=== PATIENT | female | born 1945 | race Caucasian/White ===

== ENCOUNTER 2018-06-11 08:43 | Emergency (ER) | payer MEDICARE ==
[2018-06-11 08:47] VITALS: BP 155/86
[2018-06-11] MEDS ORDERED: Oxymetazoline 0.05% NASAL SPR* 15 ML BTL RIGHT NARE ONE (08:56)
--- NOTE | 2018-06-11 09:06 | ED ---
Throat Pain/Nasal Congestion - HPI Summary HPI Summary: 72 year old female presents with epistaxis from right nare. States she awoke this morning with nose bleed. No known injury. Reports previous episode of anterior epistaxis 1-2 years ago that required cauterization. Denies anticoagulant or antiplatelet therapy, personal or family blood disorder. - History of Current Complaint Chief Complaint: EDEpistaxis Time Seen by Provider: 06/11/18 08:47 Hx Obtained From: Patient Onset/Duration: Sudden Onset, Lasting Hours - Allergies/Home Medications Allergies/Adverse Reactions: Allergies Allergy/AdvReac Type Severity Reaction Status Date / Time No Known Allergies Allergy Verified 10/16/15 20:25 PMH/Surg Hx/FS Hx/Imm Hx Endocrine/Hematology History: Reports: Hx Diabetes Cardiovascular History: Reports: Hx Hypercholesterolemia Respiratory History: Reports: Hx Chronic Bronchitis Infectious Disease History: No Infectious Disease History: Denies: Traveled Outside the [place] in Last 30 Days - Family History Known Family History: Positive: Non-Contributory - Social History Occupation: Retired Lives: With Family Alcohol Use: Rare Hx Substance Use: No Substance Use Type: Reports: None Smoking Status (MU): Heavy Every Day Tobacco Smoker Review of Systems Negative: Fever, Chills Negative: Drainage, Erythema Positive: Epistaxis. Negative: Sore Throat, Ear Ache, Nasal Discharge Negative: Palpitations, Chest Pain Negative: Shortness Of Breath, Cough Negative: Abdominal Pain, Vomiting, Diarrhea, Nausea All Other Systems Reviewed And Are Negative: Yes Physical Exam - Summary Physical Exam Summary: GENERAL APPEARANCE: Well developed, well nourished, alert and cooperative, and appears to be in no acute distress. HEAD: Atraumatic. normocephalic. EYES: Conjunctiva clear. No discharge. EARS: External auditory canals and tympanic membranes clear, hearing grossly intact. NOSE: Left nare clear without bleeding or drainage. Right nare no active bleeding. Blood clot noted to floor anterior nasal cavity. No erosions noted. THROAT: Oral cavity and pharynx normal. Small amount of blood noted in the posterior pharynx. No inflammation, swelling, exudate, or lesions. Teeth and gingiva in good general condition. NECK: Neck supple, non-tender without lymphadenopathy. CARDIAC: Normal S1 and S2. No S3, S4 or murmurs. Rhythm is regular. There is no peripheral edema, cyanosis or pallor. Extremities are warm and well perfused. Capillary refill is less than 2 seconds. LUNGS: Clear to auscultation and percussion without rales, rhonchi, wheezing or diminished breath sounds. ABDOMEN: Positive bowel sounds. Soft, nondistended, nontender. No guarding or rebound. No masses or hepatosplenomegally. MUSKULOSKELETAL: ROM intact to all extremities. No joint erythema or tenderness. Normal muscular development. Normal gait. EXTREMITIES: No significant deformity or joint abnormality. No edema. SKIN: Skin normal color, texture and turgor with no lesions or eruptions. Triage Information Reviewed: Yes Vital Signs On Initial Exam: Initial Vitals Temp Pulse Resp BP Pulse Ox 96.8 F 83 20 155/86 95 06/11/18 08:45 06/11/18 08:45 06/11/18 08:45 06/11/18 08:45 06/11/18 08:45 Vital Signs Reviewed: Yes Diagnostics - Vital Signs Vital Signs Temp Pulse Resp BP Pulse Ox 06/11/18 08:45 96.8 F 83 20 155/86 95 - Laboratory Lab Statement: Any lab studies that have been ordered have been reviewed, and results considered in the medical decision making process. Re-Evaluation - Re-Evaluation First Eval Re-Evaluation Time: 09:57 Change: Improved Comment: Patient received Afrin nasal spray and direct pressure via nasal clamp for approximately 15-20 minutes. Nasal clamp removed. No active bleeding. No pharyngeal blood noted at this time. EENT Course/Dx - Course Course Of Treatment: 72 year old female presents with epistaxis from right nare. States she awoke this morning with nose bleed. No known injury. Reports previous episode of anterior epistaxis 1-2 years ago that required cauterization. Denies anticoagulant or antiplatelet therapy, personal or family blood disorder. At initial exam there was no active bleeding observed. There was some blood noted in the posterior pharynx. Patient received Afrin nasal spray and additional direct pressure for 15-20 minutes. Re-examination showed no active bleeding. No more blood noted int the posterior pharynx. Reviewed home prevention measures, first aid, recommend smoking cessation, and warning symptoms requiring return to ED reviewed with patient. Verbalizes understanding and agrees with POC. - Differential Diagnoses Differential Diagnoses: Coagulopathy, Epistaxis, Sinusitis, Trauma, URI/ Bronchitis - Diagnoses Provider Diagnoses: Epistaxis not due to trauma Discharge - Sign-Out/Discharge Documenting (check all that apply): Patient Departure - Discharge Plan Condition: Improved Disposition: HOME Patient Education Materials: Nosebleed (ED) Referrals: Pascual RAM,Bk Hathaway [Primary Care Provider] - Additional Instructions: Your received Afrin nasal spray and direct pressure to adequately control your nose bleed in the emergency room. Do NOT blow your nose for at least the next 24 hours to avoid dislodging the blood blot. If you have to sneeze, try to do so with your mouth open so that the force of the air exits your mouth instead of your nose which may cause the blood clot to dislodge. Avoid taking any non-steroidal anti-inflammatory medications such as ibuprofen ( Advil, Motrin), naproxen (Aleve), or aspirin for the next several days. You may use acetaminophen (Tylenol) according to directions as needed for pain. To help prevent nose bleeds in the future: Avoid picking your nose. Keep the nasal passages moist using a saline nasal spray. Run a cool mist humidifier in your room at night. Avoid irritants such as smoking and chemical sprays such as air fresheners or chemical technician. First Aid for nose bleeds: Sit up and lean forwar to help prevent the blood from running down the back of your throat. Pinch your nose right at the base of the nasal bone for at least 15 minutes without releasing pressure. Apply ice to the bridge of your nose. If you are still bleeding after holding pressure for 15 minutes, try packing your nose with a cotton ball and pinch for another 15 minutes. Follow up with your primary care provider in 3-5 days if symptoms persist. Seek immediate medical attention in the emergency room if you develop another nose bleed and it does not stop despite using the first aid care as directed above, you have a foul discharge from the nose, you feel weak or dizzy, you have any difficulty breathing, or any worsening of symptoms. - Billing Disposition and Condition Condition: IMPROVED Disposition: Home
== END 2018-06-11 10:16 | disposition home or self-care (01) ==
LOC: ED 08:43
DX: R04.0 Epistaxis (principal); Z79.01 Long term (current) use of anticoagulants; E11.9 Type 2 diabetes mellitus without complications; E78.00 Pure hypercholesterolemia, unspecified; J42 Unspecified chronic bronchitis; Z72.0 Tobacco use
CPT/HCPCS: 99282; A9270-GY

== ENCOUNTER 2018-06-13 16:35 | Emergency (ER) | payer MEDICARE ==
[2018-06-13] MEDS ORDERED: Phenylephrine 0.5% NASAL* BTL RIGHT NARE ONE (17:14)
[2018-06-13] MEDS ORDERED: Lidocaine 4% TOPICAL* 50 ML TOP.SOLN TOPICAL ONE (17:14)
--- NOTE | 2018-06-13 17:15 | ED ---
Throat Pain/Nasal Congestion - HPI Summary HPI Summary: The pt is a 72 y/o female presenting to [facility] c/o intermittent epistaxis from the R nare since 2 days ago. She had another episode yesterday and today at 16: 00 hrs when standing in the porch. She denies any nasal injury or trauma. The bleeding is alleviated mildly by applying pressure. She denies hematuria and melena. Pt also denies use of blood thinners. Home Medications Medication Instructions Recorded Confirmed Type Amoxicillin/Clavulanate TAB* 875 mg PO BID #10 tab 10/16/15 Rx [Augmentin TAB 875*] - History of Current Complaint Chief Complaint: EDEpistaxis Time Seen by Provider: 06/13/18 17:10 Hx Obtained From: Patient Onset/Duration: Sudden Onset, Lasting Days - 2, Still Present - Allergies/Home Medications Allergies/Adverse Reactions: Allergies Allergy/AdvReac Type Severity Reaction Status Date / Time No Known Allergies Allergy Verified 10/16/15 20:25 PMH/Surg Hx/FS Hx/Imm Hx Previously Healthy: No Endocrine/Hematology History: Reports: Hx Diabetes Cardiovascular History: Reports: Hx Hypercholesterolemia Respiratory History: Reports: Hx Chronic Bronchitis Sensory History: Denies: Hx Deafness - Cancer History Cancer Type, Location and Year: None reported - Surgical History Surgery Procedure, Year, and Place: None reported Infectious Disease History: No Infectious Disease History: Denies: Traveled Outside the [place] in Last 30 Days - Family History Known Family History: Positive: None, Non-Contributory Family History: R & n/C - Social History Occupation: Unemployed Lives: With Family - Domestic male partner Alcohol Use: None Hx Substance Use: No Substance Use Type: Reports: None Smoking Status (MU): Heavy Every Day Tobacco Smoker Review of Systems ENT: Negative - Nasal injury/ trauma Positive: Epistaxis Genitourinary: Negative - Melena Negative: hematuria All Other Systems Reviewed And Are Negative: Yes Physical Exam - Summary Physical Exam Summary: Appearance: The patient is well-nourished in no acute distress and in no acute pain. Skin: The skin is warm and dry and skin color reflects adequate perfusion. HEENT: Erythematous at her R nares on the medial aspect of the Kiessellbach plexus. The head is normocephalic and atraumatic. The pupils are equal and reactive. The conjunctivae are clear and without drainage. Mouth reveals moist mucous membranes and the throat is without erythema and exudate. The external ears are intact. The ear canals are patent and without drainage. The tympanic membranes are intact. Neck: The neck is supple with full range of motion and non-tender. There are no carotid bruits. There is no neck vein distension. Respiratory: Chest is non-tender. Lungs are clear to auscultation and breath sounds are symmetrical and equal. Cardiovascular: Heart is regular rate and rhythm. There is no murmur or rub auscultated. There is no peripheral edema and pulses are symmetrical and equal. Abdomen: The abdomen is soft and non-tender. There are normal bowel sounds heard in all four quadrants and there is no organomegaly palpated. Musculoskeletal: There is no back tenderness noted. Extremities are non-tender with full range of motion. There is good capillary refill. There is no peripheral edema or calf tenderness elicited. Neurological: Patient is alert and oriented to person, place and time. The patient has symmetrical motor strength in all four extremities. Cranial nerves are grossly intact. Deep tendon reflexes are symmetrical and equal in all four extremities. Psychiatric: The patient has an appropriate affect and does not exhibit any anxiety or depression. Triage Information Reviewed: Yes Vital Signs On Initial Exam: Initial Vitals Temp Pulse Resp BP Pulse Ox 97.1 F 81 18 165/84 95 06/13/18 16:39 06/13/18 16:39 06/13/18 16:39 06/13/18 16:39 06/13/18 16:39 Vital Signs Reviewed: Yes Diagnostics - Vital Signs Vital Signs Temp Pulse Resp BP Pulse Ox 06/13/18 16:39 97.1 F 81 18 165/84 95 - Laboratory Lab Statement: Any lab studies that have been ordered have been reviewed, and results considered in the medical decision making process. EENT Course/Dx - Course Course Of Treatment: Ms. Lozada was not actively bleeding when she presented. She did have an area that looked like he had recently bled at Kiesselbach plexus on the right. Cotton was placed in the nose with 4% lidocaine and Kenney-Synephrine. After about 20 minutes the cotton was removed and she was cauterized. I observed her for another half hour to 45 minutes and there was no further bleeding. - Diagnoses Provider Diagnoses: Epistaxis not due to trauma Discharge - Sign-Out/Discharge Documenting (check all that apply): Patient Departure - DC - Discharge Plan Condition: Stable Disposition: HOME Patient Education Materials: Nosebleed (ED) Referrals: Pascual RAM,Bk Hathaway [Primary Care Provider] - Additional Instructions: Follow up with your PCP in 2 days Return to ED for any new or worsening symptoms - Billing Disposition and Condition Condition: STABLE Disposition: Home - Attestation Statements Document Initiated by Nelyibe: Yes Documenting Scribe: Pat Santiago Provider For Whom Rajinder is Documenting (Include Credential): Dr. Steve Alexander MD Scribe Attestation: Pat Keller , scribed for Dr. Steve Alexander MD on 06/13/18 at 1900. Scribe Documentation Reviewed: Yes Provider Attestation: The documentation as recorded by the Pat thomas accurately reflects the service I personally performed and the decisions made by me, Dr. Steve Alexander MD Status of Scribe Document: Viewed
[2018-06-13] MEDS ORDERED: Silver Nitrate/Potassium Nitr* 1 EA STICK TOPICAL ONE (18:12)
[2018-06-13] MEDS ORDERED: Silver Nitrate/Potassium Nitr* 1 EA STICK ONE (18:14)
[2018-06-13 19:10] VITALS: BP 150/80
== END 2018-06-13 18:50 | disposition home or self-care (01) ==
LOC: ED 16:35
DX: R04.0 Epistaxis (principal); Z88.0 Allergy status to penicillin; E11.9 Type 2 diabetes mellitus without complications; F17.210 Nicotine dependence, cigarettes, uncomplicated
CPT/HCPCS: 99281; A9270-GY